=== PATIENT | male | born 1940 | race Caucasian/White ===

== ENCOUNTER 2018-09-06 17:39 | Emergency (ER) | payer MEDICARE, OTHER ==
[~2018-09-06] VITALS: Ht 167.6 cm; Wt 109.2 kg
[2018-09-06 18:29] LABS: BASOPHILS # (AUTO) 0.1 X10'3 (0-0.2); BASOPHILS % (AUTO) 0.5 % (0-1); EOSINOPHILS # (AUTO) 0.3 X10'3 (0-0.9); EOSINOPHILS % (AUTO) 2.3 % (0-6); HEMATOCRIT 45.4 % (42.0-52.0); HEMOGLOBIN 15.5 g/dl (14.0-17.9); LYMPHOCYTES # (AUTO) 3.4 X10'3 (1.1-4.8); LYMPHOCYTES % (AUTO) 30.6 % (21-51); MEAN CORPUSCULAR HEMOGLOBIN 29.8 PG (27.0-31.0); MEAN CORPUSCULAR HGB CONC 34.1 g/dL (33.0-36.5); MEAN CORPUSCULAR VOLUME 87.4 FL (78-98); MEAN PLATELET VOLUME 6.4 FL (7.4-10.4); MONOCYTES # (AUTO) 1.1 X10'3 (0-0.9); NEUTROPHILS # (AUTO) 6.3 X10'3 (1.8-7.7); NEUTROPHILS % (AUTO) 56.6 % (42-75); PLATELET COUNT 248 X10'3 (140-440); RED BLOOD COUNT 5.19 X10'6 (4.70-6.10); RED CELL DISTRIBUTION WIDTH 14.1 % (11.5-14.5); WHITE BLOOD COUNT 11.2 X10'3 (4.5-11.0)
[2018-09-06 18:35] LABS: ALANINE AMINOTRANSFERASE 25 U/L (12-78); ALBUMIN 3.6 G/DL (3.4-5.0); ALBUMIN/GLOBULIN RATIO 0.8 (1.1-1.5); ALKALINE PHOSPHATASE 71 IU/L (46-116); ANION GAP 6 (8-16); ASPARTATE AMINO TRANSFERASE 24 U/L (10-37); BILIRUBIN,TOTAL 0.7 MG/DL (0.1-1.0); BLOOD UREA NITROGEN 16 MG/DL (7-18); BUN/CREATININE RATIO 13.8 (5.4-32.0); CALCIUM 9.3 MG/DL (8.5-10.1); CHLORIDE 98 MMOL/L (99-107); CREATININE 1.16 MG/DL (0.60-1.10); GLUCOSE 99 MG/DL (70-104); POTASSIUM 3.6 MMOL/L (3.5-5.1); SODIUM 132 MMOL/L (135-145); TOTAL CARBON DIOXIDE 27.9 MMOL/L (24-32); TOTAL PROTEIN 8.2 G/DL (6.4-8.2); eGFR 61 ML/MIN
[2018-09-06 18:38] LABS: TROPONIN I < 0.04 NG/ML (0.0-0.05)
[2018-09-06 18:52] LABS: PARTIAL THROMBOPLASTIN TIME 26 SECONDS (22-32)
[2018-09-06 20:49] VITALS: BP 140/69
== END 2018-09-06 21:23 | disposition short-term general hospital (02) ==
LOC: ER 17:40
DX: G93.89 Other specified disorders of brain (principal); E78.00 Pure hypercholesterolemia, unspecified; I10 Essential (primary) hypertension; K21.9 Gastro-esophageal reflux disease without esophagitis; Z87.891 Personal history of nicotine dependence; Z98.890 Other specified postprocedural states
CPT/HCPCS: 36415; 70450; 71045; 80053; 82948; 84484; 85025; 85610; 85730; 93005; 99285

== ENCOUNTER 2018-12-18 15:37 | Emergency (ER) | payer MEDICARE ==
[~2018-12-18] VITALS: Ht 172.7 cm; Wt 90.9 kg
[2018-12-18 17:12] LABS: BASOPHILS # (AUTO) 0.1 X10'3 (0-0.2); BASOPHILS % (AUTO) 0.5 % (0-1); EOSINOPHILS # (AUTO) 0.1 X10'3 (0-0.9); EOSINOPHILS % (AUTO) 0.8 % (0-6); HEMATOCRIT 46.2 % (42.0-52.0); HEMOGLOBIN 15.6 g/dl (14.0-17.9); LYMPHOCYTES # (AUTO) 2.8 X10'3 (1.1-4.8); LYMPHOCYTES % (AUTO) 19.6 % (21-51); MEAN CORPUSCULAR HEMOGLOBIN 29.9 PG (27.0-31.0); MEAN CORPUSCULAR HGB CONC 33.8 g/dL (33.0-36.5); MEAN CORPUSCULAR VOLUME 88.6 FL (78-98); MEAN PLATELET VOLUME 6.1 FL (7.4-10.4); MONOCYTES # (AUTO) 1.1 X10'3 (0-0.9); MONOCYTES % (AUTO) 7.9 % (2-12); NEUTROPHILS # (AUTO) 10.1 X10'3 (1.8-7.7); NEUTROPHILS % (AUTO) 71.2 % (42-75); PLATELET COUNT 179 X10'3 (140-440); RED BLOOD COUNT 5.21 X10'6 (4.70-6.10); RED CELL DISTRIBUTION WIDTH 16.8 % (11.5-14.5); WHITE BLOOD COUNT 14.1 X10'3 (4.5-11.0)
[2018-12-18 17:28] LABS: ALANINE AMINOTRANSFERASE 25 U/L (12-78); ALBUMIN 2.8 G/DL (3.4-5.0); ALBUMIN/GLOBULIN RATIO 0.6 (1.1-1.5); ALKALINE PHOSPHATASE 111 IU/L (46-116); ANION GAP 11 (8-16); ASPARTATE AMINO TRANSFERASE 29 U/L (10-37); BILIRUBIN,TOTAL 0.8 MG/DL (0.1-1.0); BLOOD UREA NITROGEN 20 MG/DL (7-18); BUN/CREATININE RATIO 18.2 (5.4-32.0); CALCIUM 9.2 MG/DL (8.5-10.1); CHLORIDE 99 MMOL/L (99-107); GLUCOSE 123 MG/DL (70-104); LIPASE 160 U/L (73-393); SODIUM 136 MMOL/L (135-145); TOTAL CARBON DIOXIDE 25.9 MMOL/L (24-32); TOTAL PROTEIN 7.4 G/DL (6.4-8.2); eGFR 64 ML/MIN
[2018-12-18 17:32] LABS: POTASSIUM 3.6 MMOL/L (3.5-5.1)
--- NOTE | 2018-12-18 18:20 | NUR ---
PT RESTING IN BED BACK FROM CT SCAN,VITALS STABLE FAMILY AT BEDIDE.
--- NOTE | 2018-12-18 18:53 | NUR ---
asked dr garcia if we need a urine sample from pt as per dr garcia yes please,collected the sample and sent to lab,family at bedside .
[2018-12-18 19:02] LABS: CLARITY,URINE CLOUDY (Clear); COLOR,URINE YELLOW (Yellow); GLUCOSE, URINE NEGATIVE (Neg); KETONES,URINE 15 mg/dl (Neg); LEUKOCYTE ESTERASE ,URINE SMALL (Neg); NITRITES, URINE NEGATIVE (Neg); OCCULT BLOOD,URINE LARGE (Neg); PROTEIN,URINE 100 mg/dl (Neg)
[2018-12-18 19:06] LABS: UA COLLECTION TYPE FOLEY CATH
[2018-12-18 19:13] LABS: MUCUS STRANDS MANY /LPF (Neg); WBC,URINE 30-50 /HPF (0-4)
[2018-12-18 19:14] LABS: BACTERIA,URINE 2+ /HPF (Neg)
[2018-12-18 19:15] LABS: CAL OXALATE CRYSTALS 1+ /HPF (NEGATIVE); CELLULAR CAST 0-4 /LPF (NEGATIVE); FINE GRANULAR CAST 0-3 /LPF (NEGATIVE); SQUAMOUS EPITHELIAL CELL,UR NONE SEEN /LPF (FEW)
[2018-12-18 19:16] LABS: YEAST FEW /HPF (NEGATIVE)
[2018-12-18] MEDS ORDERED: CefTRIAXone 1000mg IM Kit (w/lidocaine diluent) IM ONE (19:55)
[2018-12-18] MEDS ORDERED: CEPH500C5 PO (19:56)
[2018-12-18] MEDS ORDERED: CIPR-230 PO (19:58)
[2018-12-18 21:23] VITALS: BP 141/69
== END 2018-12-18 20:19 | disposition home or self-care (01) ==
LOC: ER 15:38
DX: R14.0 Abdominal distension (gaseous) (principal); N39.0 Urinary tract infection, site not specified; E78.00 Pure hypercholesterolemia, unspecified; I10 Essential (primary) hypertension; K21.9 Gastro-esophageal reflux disease without esophagitis; Z98.890 Other specified postprocedural states; Z79.2 Long term (current) use of antibiotics
CPT/HCPCS: 36415; 74176; 80053; 81001; 83690; 85025; 87088; 96372; 99284; J0696; 87077; 87186

== ENCOUNTER 2019-01-07 14:52 | Emergency (ER) | payer MEDICAID, MEDICARE ==
[~2019-01-07] VITALS: Ht 172.7 cm; Wt 110.0 kg
[2019-01-07 14:59] VITALS: BP 147/85
[2019-01-07] MEDS ORDERED: LIDOcaine 2% 10ml TOPICAL JELLY (Urojet) MM ONE (15:45)
[2019-01-07 16:34] LABS: CLARITY,URINE CLOUDY (Clear); COLOR,URINE YELLOW (Yellow); GLUCOSE, URINE NEGATIVE (Neg); KETONES,URINE NEGATIVE (Neg); LEUKOCYTE ESTERASE ,URINE MODERATE (Neg); NITRITES, URINE NEGATIVE (Neg); OCCULT BLOOD,URINE LARGE (Neg); PROTEIN,URINE 30 mg/dl (Neg)
[2019-01-07 16:36] LABS: ALBUMIN 2.1 G/DL (3.4-5.0); ANION GAP 6 (8-16); BLOOD UREA NITROGEN 20 MG/DL (7-18); BUN/CREATININE RATIO 17.5 (5.4-32.0); CALCIUM 8.4 MG/DL (8.5-10.1); CHLORIDE 103 MMOL/L (99-107); CREATININE 1.14 MG/DL (0.60-1.10); GLUCOSE 114 MG/DL (70-104); POTASSIUM 3.5 MMOL/L (3.5-5.1); SODIUM 138 MMOL/L (135-145); eGFR 62 ML/MIN
[2019-01-07 16:37] LABS: UA COLLECTION TYPE STRAIGHT CATH
[2019-01-07 16:41] LABS: BACTERIA,URINE 1+ /HPF (Neg); WBC,URINE TNTC /HPF (0-4)
[2019-01-07 16:42] LABS: MUCUS STRANDS NONE SEEN /LPF (Neg); SQUAMOUS EPITHELIAL CELL,UR NONE SEEN /LPF (FEW); YEAST MODERATE /HPF (NEGATIVE)
[2019-01-07] MEDS ORDERED: LEVO750T21 PO (17:02)
[2019-01-07] MEDS ORDERED: levoFLOXACIN 250mg tablet PO ONE (17:05)
--- NOTE | 2019-01-11 19:24 | NUR ---
ATTEMPTED TO CALL PT WITH URINE CULTURE RESULT LEFT MESSAGE TO CALL CHARGE NURSE.
--- NOTE | 2019-01-11 19:35 | NUR ---
SPOKE WITH PT AND INSTRUCTED HER TO FOLLOW UP WITH PCP OR RETURN TO ED IF PATIENT IS SYMPTOMATIC.
== END 2019-01-07 17:55 | disposition home or self-care (01) ==
LOC: ER 14:52
DX: T83.518A Infection and inflammatory reaction due to other urinary catheter, initial encounter (principal); N39.0 Urinary tract infection, site not specified; E78.00 Pure hypercholesterolemia, unspecified; I10 Essential (primary) hypertension; K21.9 Gastro-esophageal reflux disease without esophagitis; Z98.890 Other specified postprocedural states; Y84.6 Urinary catheterization as the cause of abnormal reaction of the patient, or of later complication, without mention of misadventure at the time of the procedure; Y92.89 Other specified places as the place of occurrence of the external cause
CPT/HCPCS: 36415; 51702; 80048; 81001; 87088; 99284

== ENCOUNTER 2019-01-12 12:11 | Inpatient (IN) | payer MEDICARE, OTHER ==
[~2019-01-12] VITALS: Ht 182.9 cm; Wt 102.0 kg
[~2019-01-12 12:11] MED LIST: LEVO750T21 PO
[2019-01-12] MEDS ORDERED: propofol 1000mg/100ml bottle 100 ML IV ONE (12:16)
[2019-01-12] MEDS ORDERED: normal saline 1000ML IV soln IVB ONE (12:20)
[2019-01-12] MEDS ORDERED: propofol 1000mg/100ml bottle 100 ML IV PRN (12:20)
--- NOTE | 2019-01-12 12:30 | NUR ---
Radiologist at bedside.
--- NOTE | 2019-01-12 12:39 | NUR ---
rate 16, etco2 22,Fi02 30.
[2019-01-12 13:00] LABS: ABG BASE EXCESS 1.3 mmol/L (-2.0-3.0); ABG OXYGEN SATURATION 96.6 % (95-98); ABG PH (T) 7.532 (7.350-7.450); ABG PO2 (T) 77.8 mmHg (83-108); ALLEN'S TEST Positive; FCOHb 0.8 % (0.5-1.5); FMetHb 0.1 % (0.3-1.12); FO2Hb 95.7 % (94-100); MINUTE VOLUME 10 L/min; PEEP 5 cm H2O; RESPIRATORY RATE 16 b/min; RESPIRATORY RATE (OBSERVED) 16 b/min; TIDAL VOLUME 550 mL
--- NOTE | 2019-01-12 13:12 | NUR ---
Propofol increased to 10mcg.Spouse at bedside.
[2019-01-12 13:13] LABS: PARTIAL THROMBOPLASTIN TIME 22 SECONDS (22-32)
[2019-01-12 13:14] LABS: BASOPHILS % (AUTO) 0.3 % (0-1); EOSINOPHILS % (AUTO) 0.1 % (0-6); HEMATOCRIT 42.1 % (42.0-52.0); HEMOGLOBIN 13.9 g/dl (14.0-17.9); LYMPHOCYTES # (AUTO) 1.6 X10'3 (1.1-4.8); LYMPHOCYTES % (AUTO) 12.9 % (21-51); MEAN CORPUSCULAR HEMOGLOBIN 29.7 PG (27.0-31.0); MEAN CORPUSCULAR HGB CONC 33.1 g/dL (33.0-36.5); MEAN CORPUSCULAR VOLUME 89.7 FL (78-98); NEUTROPHILS # (AUTO) 9.6 X10'3 (1.8-7.7); NEUTROPHILS % (AUTO) 78.7 % (42-75); PLATELET COUNT 201 X10'3 (140-440); RED BLOOD COUNT 4.69 X10'6 (4.70-6.10); RED CELL DISTRIBUTION WIDTH 15.7 % (11.5-14.5); WHITE BLOOD COUNT 12.2 X10'3 (4.5-11.0)
[2019-01-12 13:32] LABS: CLARITY,URINE SLIGHTLY CLOUDY (Clear); COLOR,URINE YELLOW (Yellow); GLUCOSE, URINE NEGATIVE (Neg); KETONES,URINE TRACE mg/dl (Neg); LEUKOCYTE ESTERASE ,URINE LARGE (Neg); NITRITES, URINE NEGATIVE (Neg); OCCULT BLOOD,URINE LARGE (Neg); PH,URINE 7.5 (4.8-8.0); PROTEIN,URINE NEGATIVE (Neg); UROBILINOGEN,URINE 0.2 E.U/dL (0.2-1.0)
[2019-01-12 13:32] LABS: ALANINE AMINOTRANSFERASE 17 U/L (12-78); ALBUMIN 2.5 G/DL (3.4-5.0); ALBUMIN/GLOBULIN RATIO 0.5 (1.1-1.5); ALKALINE PHOSPHATASE 101 IU/L (46-116); ANION GAP 11 (8-16); ASPARTATE AMINO TRANSFERASE 20 U/L (10-37); BILIRUBIN,TOTAL 0.7 MG/DL (0.1-1.0); BLOOD UREA NITROGEN 15 MG/DL (7-18); BUN/CREATININE RATIO 15.3 (5.4-32.0); CALCIUM 8.8 MG/DL (8.5-10.1); CHLORIDE 100 MMOL/L (99-107); CREATININE 0.98 MG/DL (0.60-1.10); GLUCOSE 120 MG/DL (70-104); POTASSIUM 3.3 MMOL/L (3.5-5.1); SODIUM 137 MMOL/L (135-145); TOTAL PROTEIN 7.1 G/DL (6.4-8.2); eGFR 74 ML/MIN
--- NOTE | 2019-01-12 13:37 | NUR ---
patient to ct.
[2019-01-12 13:40] LABS: UA COLLECTION TYPE FOLEY CATH
[2019-01-12 13:53] LABS: MUCUS STRANDS FEW /LPF (Neg); SQUAMOUS EPITHELIAL CELL,UR FEW /LPF (FEW)
[2019-01-12 13:58] LABS: BACTERIA,URINE 1+ /HPF (Neg); RBC,URINE 20-50 /HPF (0-2); WBC,URINE TNTC /HPF (0-4)
[2019-01-12 13:59] LABS: WBC CLUMPS,URINE FEW /HPF (NEGATIVE)
[2019-01-12 14:00] LABS: YEAST MODERATE /HPF (NEGATIVE)
--- NOTE | 2019-01-12 14:26 | NUR ---
pt's family states that the pt is a DNR and is supposed to be on hospice. MD Palmer has talked with pt's family and they have all confirmed that the pt is not supposed to be intubated due to his and family request. MD Palmer requested the Propofol to be stopped and the Ventilator to be turned off and then the pt extubated. pt's family is at bedside. pt is breathing on own RR [address] with tube still in place. RT at bedside with pt. pt starting to wake up
--- NOTE | 2019-01-12 14:39 | NUR ---
patient extubated at this time,patient tolerated well.Family at bedside.
[2019-01-12] MEDS ORDERED: ondansetron/PF 4mg/2ml inj IV PRN (16:15)
[2019-01-12] MEDS ORDERED: HYDROcodone/acetaminophen 5mg/325mg tablet PO PRN (16:15)
[2019-01-12] MEDS ORDERED: magnesium 4gm in 100ml NS 100 ML IV PRN (16:15)
[2019-01-12] MEDS ORDERED: mag hydrox/Alum hydrox/simeth 30ml oral suspension PO PRN (16:15)
[2019-01-12] MEDS ORDERED: potassium CL 10mEq/100ml bag 100 ML IV PRN (16:15)
[2019-01-12] MEDS ORDERED: acetaminophen 325mg tablet PO PRN ×2 (16:15)
[2019-01-12] MEDS ORDERED: magnesium Cl slow-release 64mg tablet PO PRN (16:15)
[2019-01-12] MEDS ORDERED: magnesium 2GM in 50ml NS 50 ML IV PRN (16:15)
[2019-01-12] MEDS ORDERED: potassium Cl 20 mEq SR tablet PO PRN ×2 (16:15)
[2019-01-12] MEDS ORDERED: magnesium hydroxide 30ml (MOM) UD suspension PO PRN (16:15)
[2019-01-12] MEDS ORDERED: morphine 2 MG/ML inj. syringe IV PRN ×2 (16:15)
[2019-01-12] MEDS ORDERED: HYDROcodone/acetaminophen 10/325mg tab PO PRN (16:15)
[2019-01-12 17:00] VITALS: BP 170/76
[2019-01-12] MEDS ORDERED: LORazepam 2 mg/ml vial IV PRN (18:30)
--- NOTE | 2019-01-12 18:30 | NUR ---
Patient in room [facility]TH[facility] 4016. I have received report from LAWRENCE Avila and had the opportunity to ask questions and assume patient care.
[2019-01-12 19:00] VITALS: BP 157/85
[2019-01-12] MEDS: ciprofloxacin lact 400MG/200ML 200 ML IV SCH (19:19)
[2019-01-12] MEDS: heparin, porcine 5000 units/ml vial SQ SCH (19:20)
[2019-01-12] MEDS: normal saline 1000ml 1,000 ML IV SCH ×2 (19:20→22:30)
[2019-01-12] MEDS ORDERED: [UNRECOGNIZED DRUG - CODE] PO (20:31)
[2019-01-12 20:34] VITALS: BP 156/82
[2019-01-12] MEDS ORDERED: temazepam 15mg capsule PO PRN (21:00)
[2019-01-12 22:00] VITALS: BP 153/62
[2019-01-12] MEDS: potassium CL 10mEq/100ml bag 100 ML IV PRN ×2 (22:48→23:47)
[2019-01-13 00:20] VITALS: BP 148/80
[2019-01-13] MEDS: potassium CL 10mEq/100ml bag 100 ML IV PRN ×2 (00:53→02:05)
[2019-01-13 04:20] VITALS: BP 155/60
[2019-01-13 05:52] LABS: BASOPHILS # (AUTO) 0.1 X10'3 (0-0.2); BASOPHILS % (AUTO) 0.8 % (0-1); EOSINOPHILS % (AUTO) 0.2 % (0-6); HEMOGLOBIN 11.5 g/dl (14.0-17.9); LYMPHOCYTES # (AUTO) 1.5 X10'3 (1.1-4.8); LYMPHOCYTES % (AUTO) 13.8 % (21-51); MEAN CORPUSCULAR HEMOGLOBIN 30.4 PG (27.0-31.0); MEAN CORPUSCULAR HGB CONC 33.9 g/dL (33.0-36.5); MEAN CORPUSCULAR VOLUME 89.7 FL (78-98); MEAN PLATELET VOLUME 5.9 FL (7.4-10.4); MONOCYTES % (AUTO) 9.4 % (2-12); NEUTROPHILS % (AUTO) 75.8 % (42-75); PLATELET COUNT 153 X10'3 (140-440); RED BLOOD COUNT 3.79 X10'6 (4.70-6.10); RED CELL DISTRIBUTION WIDTH 15.5 % (11.5-14.5); WHITE BLOOD COUNT 10.5 X10'3 (4.5-11.0)
[2019-01-13 06:00] VITALS: BP 155/60
--- NOTE | 2019-01-13 06:00 | NUR ---
Patient in room ORTH[facility] 4016. I have received report from CLARA BRAVO and had the opportunity to ask questions and assume patient care.
--- NOTE | 2019-01-13 06:11 | NUR ---
Problems reprioritized. Patient report given, questions answered & plan of care reviewed with LAWRENCE Kaba.
[2019-01-13 06:26] LABS: ANION GAP 9 (8-16); BLOOD UREA NITROGEN 13 MG/DL (7-18); BUN/CREATININE RATIO 17.1 (5.4-32.0); CALCIUM 8.1 MG/DL (8.5-10.1); CHLORIDE 105 MMOL/L (99-107); CREATININE 0.76 MG/DL (0.60-1.10); GLUCOSE 105 MG/DL (70-104); MAGNESIUM 1.7 MG/DL (1.5-2.4); POTASSIUM 3.7 MMOL/L (3.5-5.1); SODIUM 140 MMOL/L (135-145); TOTAL CARBON DIOXIDE 26.5 MMOL/L (24-32); TRIGLYCERIDES 52 MG/DL (20-135); eGFR > 90 ML/MIN
[2019-01-13] MEDS: heparin, porcine 5000 units/ml vial SQ SCH ×2 (07:20→19:41)
[2019-01-13] MEDS: ciprofloxacin lact 400MG/200ML 200 ML IV SCH ×3 (07:20→19:42)
[2019-01-13] MEDS ORDERED: K and/or MAG REPLACEMENT MC SCH (08:00)
[2019-01-13 10:00] VITALS: BP 143/62
--- NOTE | 2019-01-13 10:46 | NUR ---
Malnutrition consult: Unable to obtain information from pt at this time as pt is obtunded per documentation. Per records pt weighed 109.25 kg 09/06/18 using chair scale, current documented wt is "emergency" and is 102 kg. If wt change is true, this is non-significant wt loss of 6% in 4 months. Per documented ht hx patient's ht ranges 67-68", currently documented at 72". Updated BMI is obese at 34.1. Unable to assess PO intake at this time as pt currently NPO pending BSS, ST has already been consulted. Pt documented with severe muscle weakness and no significant edema. Pt currently lacks a minimum of two criteria for malnutrition. Will continue to follow and monitor qualifying criteria during admit. Addendum: 01/13/19 at [address] Amended: Links added.
[2019-01-13] MEDS ORDERED: LEVE100S21 CORPAK (11:46)
[2019-01-13 14:00] VITALS: BP 152/61
[2019-01-13] MEDS ORDERED: acetaminophen 325mg rectal suppository RC PRN (15:40)
--- NOTE | 2019-01-13 17:32 | NUR ---
Student documentation: I have reviewed and agree with all interventions, assessments performed and documented by VICTORIA DELACRUZ. Student Medication Administration: For this medication-pass time frame, all medication were reviewed, dispensed, administered and documented per hospital policy by VICTORIA DELACRUZ.
[2019-01-13] MEDS: normal saline 1000ml 1,000 ML IV SCH (17:54)
--- NOTE | 2019-01-13 18:00 | NUR ---
Patient in room [facility]TH[facility] 4016. I have received report from LAWRENCE ORELLANA and had the opportunity to ask questions and assume patient care.
--- NOTE | 2019-01-13 18:22 | NUR ---
Report given to Lexy BRAVO
--- NOTE | 2019-01-13 18:22 | NUR ---
Problems reprioritized. Patient report given, questions answered & plan of care reviewed with CLARA BRAVO.
[2019-01-13] MEDS ORDERED: lactobacillus rhamnosus 10,000 MMU CELLS/CAPSULE PO SCH (20:00)
[2019-01-14] MEDS: morphine 2 MG/ML inj. syringe IV PRN ×2 (03:43→05:43)
--- NOTE | 2019-01-14 06:10 | NUR ---
Problems reprioritized. Patient report given, questions answered & plan of care reviewed with LAWRENCE Kim.
[2019-01-14] MEDS: LORazepam 2 mg/ml vial IV PRN ×5 (06:12→23:43)
[2019-01-14 06:15] VITALS: BP 137/61
--- NOTE | 2019-01-14 06:15 | NUR ---
Patient in room [facility]TH[facility] 4016. I have received report from and had the opportunity to ask questions and assume patient care LAWRENCE Pugh
--- NOTE | 2019-01-14 06:54 | NUR ---
Pt. had a small seizure that last 1 min. Ativan given .We will continue with pt. care.
[2019-01-14] MEDS: heparin, porcine 5000 units/ml vial SQ SCH ×2 (08:00→19:35)
[2019-01-14] MEDS: ciprofloxacin lact 400MG/200ML 200 ML IV SCH ×2 (08:00→19:35)
[2019-01-14 10:00] VITALS: BP_SYST 130; BP_SYST 136; BP_DIAS 46; BP_DIAS 55
[2019-01-14] MEDS: normal saline 1000ml 1,000 ML IV SCH (15:21)
--- NOTE | 2019-01-14 15:42 | NUR ---
Page Dr Grimes: PAGER ID: [phone] MESSAGE: [phone] Mark Cleaning: pt on oral Keppra at home/med req, family request order for Keppra IV push. Pt having sz aprox Q4 hrs since change of shift. Thank you, Judy [phone]
[2019-01-14] MEDS ORDERED: Levetiracetam-NS 500mg/100ml 100 ML IV SCH (16:00)
--- NOTE | 2019-01-14 18:15 | NUR ---
Received report from LAWRENCE Kim, assumed patient care.
--- NOTE | 2019-01-14 18:31 | NUR ---
Problems reprioritized. Patient report given, questions answered & plan of care reviewed with LAWRENCE Putnam.
[2019-01-15] MEDS: LORazepam 2 mg/ml vial IV PRN ×2 (03:49→13:03)
--- NOTE | 2019-01-15 06:23 | NUR ---
Patient report given, questions answered and plan of care reviewed with LAWRENCE Madden.
[2019-01-15] MEDS: heparin, porcine 5000 units/ml vial SQ SCH (08:00)
[2019-01-15] MEDS: ciprofloxacin lact 400MG/200ML 200 ML IV SCH (09:28)
[2019-01-15] MEDS: levetiracetam inj 500 MG in normal saline 100ml IV soln 100 ML IV SCH ×2 (09:28→20:44)
--- NOTE | 2019-01-15 12:06 | NUR ---
Pt has been made DNR w/ comfort care. LB 01/12 remains NPO. Will continue to follow per protocol. Addendum: 01/15/19 at [address] Amended: Links added.
[2019-01-15] MEDS: normal saline 1000ml 1,000 ML IV SCH (12:32)
[2019-01-15] MEDS: LORazepam 2 mg/ml vial IV SCH ×2 (15:58→20:44)
[2019-01-15 17:07] VITALS: BP 142/64
--- NOTE | 2019-01-15 18:15 | NUR ---
Patient in room [facility]TH[facility] 4016. I have received report from STEVEN BRAVO and had the opportunity to ask questions and assume patient care. Addendum: 01/15/19 at 2146 by Etta Echols RN Amended: Links added.
--- NOTE | 2019-01-15 19:00 | NUR ---
PER FAMILY REQUEST AND PT APPEARS UNCOMFORTABLE AND IN PAIN BY HIS BEHAVIOR MEDICATED FOR THIS WITH 1MG IV MORPHINE. FAMILY AWARE MEDICATION WILL HELP WITH THE BREATHING. ANSWERED DAUGHTERS AND WIFES QUESTIONS FOR THEM. REVEIWED MEDICATIONS WITH THEM FOR HIS COMFORT AND THAT THE KEPPRA IS NOT DC'D SO THAT HE DOES NOT HAVE A SEIZURE AND TO KEEP HIM COMFORTABLE. FAMILY GLAD THIS WAS REVIEWED WITH THEM.
[2019-01-15] MEDS: morphine 2 MG/ML inj. syringe IV PRN (19:31)
--- NOTE | 2019-01-15 20:30 | NUR ---
IV ATIVAN GIVEN TO PT PER FAMILY REQUEST OF EVERY 4 HOURS. THEY SAID THEY DID NOT WANT HIM HAVING A SEIZURE. PT POSITIONED TO COMFORT AND AT THE BEDSIDE AND DAUGHTERS IN CHAIRS NEARBY.
[2019-01-15 22:00] VITALS: BP 152/66
--- NOTE | 2019-01-15 22:16 | NUR ---
PT APPEARS COMFORTABLE WITHOUT CHANGES. RESP EVEN AND UNLABORED NEXT TO HIM.
--- NOTE | 2019-01-16 00:20 | NUR ---
pt resting eyes closed and medicated with .5mg ativan per family request and as odered. pt with near him and daughters asleep in the chairs. resting no s&s of distress at this time.
[2019-01-16] MEDS: LORazepam 2 mg/ml vial IV SCH ×6 (00:40→20:15)
--- NOTE | 2019-01-16 02:15 | NUR ---
pt resp even and unlabored no complaints or s&s of distress. family asleep near him.
--- NOTE | 2019-01-16 03:53 | NUR ---
UP AND AWAKE. PT RESP EVEN AND UNLABORED APPEARS COMFORTABLE.
--- NOTE | 2019-01-16 04:40 | NUR ---
PT MEDICATED WITH IV ATIVAN. WIFEE WAS UP NOW BACK NEAR HIM. PT AROUSABLE. MEDICATED FOR COOMFORT. TOLERATED WELL DAUGHTER IN THE ROOM IN CHAIRS RESTING NEARBY.
--- NOTE | 2019-01-16 05:54 | NUR ---
PT MEDICATED EARILIER FOR DISCOMFORT. FAMILY AT THE BEDSIDE AND NO S&S OF DISTRESS AT THIS TIME. RESP EVEN AND UNLABORED.
--- NOTE | 2019-01-16 06:02 | NUR ---
Problems reprioritized. Patient report given, questions answered & plan of care reviewed with STEVEN BRAVO. Addendum: 01/16/19 at 0603 by Etta Echols RN Amended: Links added.
[2019-01-16] MEDS: Levetiracetam-NS 500mg/100ml 100 ML IV SCH ×2 (07:51→20:15)
[2019-01-16 10:00] VITALS: BP 121/53
--- NOTE | 2019-01-16 18:30 | NUR ---
Patient in room [facility]TH[facility] 4016. I have received report from LAWRENCE Madden and had the opportunity to ask questions and assume patient care. Patient is resting comfortably on hospital bed, comfort care has been initiated and family is at the bedside. I will continue to monitor.
[2019-01-16] MEDS: morphine 2 MG/ML inj. syringe IV PRN ×2 (19:16→22:19)
[2019-01-17] MEDS: LORazepam 2 mg/ml vial IV SCH ×6 (00:04→20:52)
[2019-01-17] MEDS: morphine 2 MG/ML inj. syringe IV PRN ×6 (02:46→22:13)
--- NOTE | 2019-01-17 06:00 | NUR ---
Patient in room [facility]TH[facility] 4016. I have received report from JOSE BRAVO and had the opportunity to ask questions and assume patient care.
--- NOTE | 2019-01-17 06:07 | NUR ---
Problems reprioritized. Patient report given, questions answered & plan of care reviewed with LAWRENCE Kaba.
--- NOTE | 2019-01-17 07:37 | NUR ---
PAGER ID: [phone] MESSAGE: ALEJANDRA [phone] RE: ALVARO [phone] CAN I GET A SCOPALAMINE PATCH, PT HAS SECRETIONS.
[2019-01-17] MEDS: Levetiracetam-NS 500mg/100ml 100 ML IV SCH ×2 (08:36→20:53)
[2019-01-17 10:00] VITALS: BP 105/49
[2019-01-17] MEDS ORDERED: scopolamine 1.5mg patch.TD72 TD ONE (10:20)
--- NOTE | 2019-01-17 12:22 | NUR ---
Wound care POC. Patient is low raymond score. Spoke with primary RN as pt is comfort care at this time. She states no breakdown noted, no need for wound care or a specialty bed to ensure pt is comfortable. Will continue to monitor.
--- NOTE | 2019-01-17 18:05 | NUR ---
Problems reprioritized. Patient report given, questions answered & plan of care reviewed with BENITA BRAVO.
--- NOTE | 2019-01-17 18:10 | NUR ---
Patient in room [facility]TH[facility] 4016. I have received report from Sendy BRAVO and had the opportunity to ask questions and assume patient care.
[2019-01-17 22:00] VITALS: BP 112/40
[2019-01-18] MEDS: LORazepam 2 mg/ml vial IV SCH ×6 (01:14→20:57)
[2019-01-18] MEDS: morphine 2 MG/ML inj. syringe IV PRN ×2 (03:03→11:04)
--- NOTE | 2019-01-18 05:51 | NUR ---
family member refused to turn pt
--- NOTE | 2019-01-18 06:15 | NUR ---
Patient in room [facility]TH[facility] 4016. I have received report from BENITA BRAVO and had the opportunity to ask questions and assume patient care.
--- NOTE | 2019-01-18 06:21 | NUR ---
Problems reprioritized. Patient report given, questions answered & plan of care reviewed with Sendy BRAVO.
[2019-01-18] MEDS: Levetiracetam-NS 500mg/100ml 100 ML IV SCH ×2 (08:20→19:37)
--- NOTE | 2019-01-18 10:50 | NUR ---
Student documentation: I have reviewed all interventions, assessments performed and documented by Elton Guajardo. Student Medication Administration: For this medication-pass time frame, all medication were reviewed, dispensed, administered and documented per hospital policy by Elton Guajardo.
[2019-01-18] MEDS: morphine 2 MG/ML inj. syringe IV SCH ×5 (15:38→23:24)
--- NOTE | 2019-01-18 18:20 | NUR ---
Problems reprioritized. Patient report given, questions answered & plan of care reviewed with ALBARO BRAVO.
[2019-01-19] MEDS: LORazepam 2 mg/ml vial IV SCH ×9 (01:04→23:09)
[2019-01-19] MEDS: morphine 2 MG/ML inj. syringe IV SCH ×12 (02:06→20:05)
--- NOTE | 2019-01-19 06:05 | NUR ---
Problems reprioritized. Patient report given, questions answered & plan of care reviewed with ALBARO BRAVO.
--- NOTE | 2019-01-19 06:18 | NUR ---
Patient in room [facility]TH[facility] 4016. I have received report from ALBARO BRAVO and had the opportunity to ask questions and assume patient care.
--- NOTE | 2019-01-19 06:45 | NUR ---
PAIN REASSESSMENT NOT DONE 0542 PATIENT WAS SLEEPING AT 0620 WHEN ROUNDING
[2019-01-19] MEDS: Levetiracetam-NS 500mg/100ml 100 ML IV SCH ×2 (07:11→20:07)
[2019-01-19 10:00] VITALS: BP 140/53
[2019-01-19] MEDS ORDERED: morphine/NS 5 mg/ml CADD 100 ML IV SCH ×2 (18:35→19:55)
[2019-01-19] MEDS ORDERED: HYDROmorphone/NS 1 mg/ml CADD 50 ML IV SCH (19:05)
[2019-01-19] MEDS: morphine/NS 5 mg/ml CADD 50 ML IV SCH (19:58)
[2019-01-19] MEDS ORDERED: CADD PCA waste documentation MC SCH (20:00)
[2019-01-20] MEDS: LORazepam 2 mg/ml vial IV SCH ×2 (01:00→03:35)
[2019-01-20] MEDS: morphine/NS 5 mg/ml CADD 50 ML IV SCH ×2 (01:09→05:39)
--- NOTE | 2019-01-20 04:07 | NUR ---
PT has at 0350. EKG strip printed reading asystole, Dr. Contreras was notified.
== END 2019-01-20 05:30 | disposition expired | DRG 55 ==
LOC: ER 12:12 → ED HOLD 16:14 → ORTHO 4S 17:35 → OBSVTOIN 01-13 15:37 → UNDODISIN 01-17 15:50
PROVIDERS: ADMIT Internal Medicine; ATTEND Internal Medicine
PROC: 0BH17EZ Insertion of Endotracheal Airway into Trachea, Via Natural or Artificial Opening (ICD-10-PCS; principal; 2019-01-12)
PROC: 5A1935Z Respiratory Ventilation, Less than 24 Consecutive Hours (ICD-10-PCS; 2019-01-12)
DX: C71.9 Malignant neoplasm of brain, unspecified (principal); G40.419 Other generalized epilepsy and epileptic syndromes, intractable, without status epilepticus; N39.0 Urinary tract infection, site not specified; J90 Pleural effusion, not elsewhere classified; G93.49 Other encephalopathy; E78.00 Pure hypercholesterolemia, unspecified; E78.5 Hyperlipidemia, unspecified; I10 Essential (primary) hypertension; K21.9 Gastro-esophageal reflux disease without esophagitis; Z51.5 Encounter for palliative care; Z66 Do not resuscitate; Z85.841 Personal history of malignant neoplasm of brain
CPT/HCPCS: 31500; 36415; 36600; 70450; 71045; 80048; 80053; 81001; 82803; 83735; 84478; 85018; 85025; 85610; 85730; 87077; 87081; 87088; 92508; 92616; 93005; 94002; 94760; 96360; 96361; 99291; 99292; G0378; J0744; J1644; J1953; J2060; J2270; J2704; J3480; J7030